=== PATIENT | female | born 1960 | race African-American/Black ===

== ENCOUNTER → 2017-03-31 | Outpatient (CLI) | payer MEDICARE ==
--- NOTE | ~2017-03-31 | ST ---
Unit #: [id number] #: [id number] Patient: PEDRO DANIELS [id number] [facility]. [address] [place], [place] [address] [id number] O MR#: [id number] NAME: PEDRO DANIELS : 1960 SEX: F STUDY DATE/TIME: 03/31/2017 UNIT: [facility] ROOM: STUDY DESCRIPTION: Attending Physician: Kristine Hutchinson M.D. Referring Physician: Kristine Hutchinson M.D. Primary Care Physician: Vivien Mckeon M.D. CARDIOLOGY REPORT EXAM Walking Lexiscan. REASON FOR TEST Chest pain. FINDINGS Baseline EKG: Normal sinus rhythm, rate of 69 beats per minute. PROCEDURE 0.4 mg of Lexiscan was injected per protocol followed by Cardiolite while the patient was walking at a slow pace on the treadmill. During the infusion period, the patient did complain of some lightheadedness as well as stomach cramping and nausea. She denied any shortness of breath or chest pain. There were no ST segment changes suggestive of ischemia. There was an occasional PVC noted during the infusion as well as in the recovery period. The test was stopped secondary to protocol completion. IMPRESSION 1. Negative EKG portion of walking Lexiscan Cardiolite. 2. No ST-T wave changes suggestive of ischemia. 3. The patient did complain of lightheadedness and some stomach cramping during the infusion. This resolved in the recovery period. She denied any complaints of chest pain or shortness of breath. 4. There was an occasional PVC noted during the infusion and in the recovery period. 5. The patient did have a slightly elevated blood pressure on arrival of 192/100. Her blood pressure maxed at 220/100. Final blood pressure was 190/90. The patient was advised to resume her home medications that she held this morning for her test when she got home. She is asymptomatic from a blood pressure standpoint. 6. Please correlate with nuclear images. Dictated by... Haleigh Morgan A.P.R.N. for Marija Mendoza/heather TD: 03/31/2017 09:15 JOB #: [id number] Unit #: [id number] #: [id number] Patient: JEREMIAHPEDRO Katalina CARDIOLOGY REPORT Page 1 of 1 X Haleigh Morgan APRN CARDIOLOGY REPORT
--- NOTE | ~2017-03-31 | TH ---
Unit #: [id number] #: [id number] Patient: PEDRO DANIELS [id number] [address] [place], [place] [address] [id number] O MR#: [id number] NAME: PEDRO DANIELS : 1960 SEX: F STUDY DATE/TIME: 03/31/2017 UNIT: [facility] ROOM: STUDY DESCRIPTION: Attending Physician: Kristine Hutchinson M.D. Referring Physician: Kristine Hutchinson M.D. Primary Care Physician: Vivien Mckeon M.D. CARDIOLOGY REPORT EXAM Lexiscan Cardiolite stress test, nuclear portion. PROCEDURE Using technetium 99m labeled Cardiolite, rest and stress SPECT images were obtained. Multiple SPECT images were obtained in various views including horizontal and vertical long axis and short axis views of the left ventricle. Images were obtained by gated SPECT method. The patient was administered 11.22 mCi of Cardiolite at rest. Patient was administered 34.8 mCi of Cardiolite after Lexiscan infusion was completed. On the stress images, there is normal perfusion noted. The rest images show normal perfusion. Comparing rest and stress images, there is no stress-induced ischemia noted. The left ventricular ejection fraction is calculated to be 59%. There is no focal wall motion abnormality seen. CONCLUSION 1. No stress-induced ischemia noted. 2. The left ventricular ejection fraction is calculated to be 59%. 3. There is no focal wall motion abnormality seen. 4. Normal Lexiscan Cardiolite stress test. Dictated by... Marija Mendoza TD: 03/31/2017 10:19 JOB #: [id number] CARDIOLOGY REPORT Page 1 of 1 X Kristine Hutchinson MD <ELECTRONICALLY SIGNED> 04/22/17 1524 CARDIOLOGY REPORT
== END | disposition home or self-care (01) ==
LOC: CNUC 06:46
DX: R07.9 Chest pain, unspecified (principal); E11.65 Type 2 diabetes mellitus with hyperglycemia; I10 Essential (primary) hypertension
CPT/HCPCS: 78452; 93017; A9500; J2785